=== PATIENT | male | born 1975 | race Two or more races ===

== ENCOUNTER 2021-10-16 10:39 | Emergency (ER) | payer OTHER ==
[~2021-10-16] VITALS: Ht 172.7 cm; Wt 104.3 kg
[2021-10-16] MEDS ORDERED: XARELTO2.5 MG PO (11:23)
[2021-10-16] MEDS ORDERED: CRESTOR5 MG PO (11:23)
[2021-10-16] MEDS ORDERED: TENORMIN50 M1 PO (11:23)
[2021-10-16] MEDS ORDERED: VAZALORE81 MG PO (11:23)
== END 2021-10-16 18:51 | disposition home or self-care (01) ==
LOC: ER 10:39
DX: R07.89 Other chest pain (principal); R42 Dizziness and giddiness